=== PATIENT | female | born 1955 | race Hispanic/Latino ===

== ENCOUNTER 2018-06-27 03:59 | Observation (INO) | payer OTHER ==
[~2018-06-27] VITALS: Ht 170.2 cm; Wt 72.6 kg
[2018-06-27 04:34] LABS: BASOPHILS % (AUTO) 0.8 % (0.0-5.0); EOSINOPHILS % (AUTO) 2.9 % (0.0-8.0); LYMPHOCYTES % (AUTO) 49.1 % (21.0-51.0); MEAN CORPUSCULAR HEMOGLOBIN 31.2 pg (27.0-33.0); MEAN CORPUSCULAR HGB CONC 34.5 g/dL (32.0-36.0); MEAN CORPUSCULAR VOLUME 90.5 fL (79-99); MONOCYTES % (AUTO) 6.5 % (3.0-13.0); NEUTROPHILS % (AUTO) 40.7 % (40.0-77.0); PLATELET COUNT (AUTO) 223 K/uL (130-400); RED BLOOD CELL COUNT(AUTO) 4.31 MIL/uL (4.00-5.50); WHITE BLOOD COUNT (AUTO) 8.9 K/uL (4.8-10.8)
[2018-06-27 04:45] LABS: CREATININE 0.9 mg/dL (0.5-1.5); POTASSIUM 3.4 mmol/L (3.5-5.1)
[2018-06-27 04:49] LABS: ALBUMIN 3.5 g/dL (3.5-5.0); BILIRUBIN,TOTAL 0.6 mg/dL (0.2-1.0); TOTAL PROTEIN, SERUM 7.2 g/dL (6.0-8.3)
[2018-06-27 04:49] LABS: APPEARANCE,URINE Clear (CLEAR); BILIRUBIN,URINE Negative (NEGATIVE); COLOR,URINE Dark Yellow (YELLOW); GLUCOSE, URINE (UA) Negative (NEGATIVE); KETONES,URINE Negative (NEGATIVE); LEUKOCYTE ESTERASE ,URINE Small (NEGATIVE); NITRATE,URINE Negative (NEGATIVE); OCCULT BLOOD,URINE Negative (NEGATIVE); PROTEIN,URINE Negative (NEGATIVE); UROBILINOGEN,URINE 0.2 mg/dL (0.2-1.0)
[2018-06-27 05:32] LABS: BACTERIA,URINE Few /HPF (None Seen); RBC,URINE 0-1 /HPF (0-1)
[2018-06-27] MEDS ORDERED: SODIUM CHLORIDE 0.9% 1000ML 1,000 ML IV ONE (05:33)
[2018-06-27] MEDS ORDERED: DOXYCYCLINE 100MG+NS 250ML 250 ML IV ONE (05:33)
[2018-06-27] MEDS ORDERED: RANI150T7 PO (07:16)
[2018-06-27] MEDS ORDERED: GABA-531 PO (07:16)
[2018-06-27] MEDS ORDERED: LISI2.5T2 PO (07:16)
[2018-06-27] MEDS ORDERED: METF-444 PO (07:16)
[2018-06-27] MEDS ORDERED: INSU3INS9 SQ (07:16)
[2018-06-27] MEDS: INSULIN R PO SS1 SQ SCH ×4 (07:30→20:42)
[2018-06-27 08:00] VITALS: BP 125/78
[2018-06-27] MEDS ORDERED: MAG HYDROX/AL HYDROX/SIMETH ES 30 ML SUSP UDCUP PO PRN (09:00)
[2018-06-27] MEDS ORDERED: ENOXAPARIN SODIUM 30 MG/0.3 ML SQ SCH (09:00)
[2018-06-27] MEDS ORDERED: LACTULOSE 20 GM/30 ML UDCUP PO PRN (09:00)
[2018-06-27] MEDS ORDERED: ACETAMINOPHEN 325 MG TAB PO PRN ×2 (09:00)
[2018-06-27] MEDS ORDERED: DIPHENHYDRAMINE HCL 25 MG CAPSULE PO PRN (09:00)
[2018-06-27] MEDS: PANTOPRAZOLE SODIUM 40 MG TABLET.DR PO SCH (09:00)
[2018-06-27] MEDS ORDERED: DiphenhydrAMINE HCL 50 MG/ML VIAL IV PRN (09:00)
[2018-06-27] MEDS ORDERED: DEXTROSE 50%-WATER 50 ML DISP.SYRIN IV PRN (09:15)
[2018-06-27] MEDS ORDERED: LIDOCAINE HCL-MPF 1% 2ML VIAL IVP PRN (09:15)
[2018-06-27] MEDS ORDERED: PROCHLORPERAZINE EDISYLATE 10 MG/2 ML VIAL IV PRN (09:15)
[2018-06-27] MEDS ORDERED: POTASSIUM CHLORIDE 10% ELIXIR 20 MEQ/15 ML UDCUP PO PRN (09:15)
[2018-06-27] MEDS ORDERED: CEPHALEXIN 500 MG CAPSULE PO SCH (09:15)
[2018-06-27] MEDS ORDERED: POTASSIUM CHLORIDE 20MEQ/100ML 100 ML IV PRN (09:15)
[2018-06-27] MEDS ORDERED: GLUCAGON 1MG KIT 1 MG ML IM PRN (09:15)
[2018-06-27] MEDS: SODIUM CHLORIDE 0.9% 1000ML 1,000 ML IV SCH ×4 (09:34→23:25)
[2018-06-27] MEDS ORDERED: SIMV5TAB6 PO (09:51)
[2018-06-27] MEDS: POTASSIUM CHLORIDE 20 MEQ ERTAB PO PRN ×2 (09:55→11:54)
[2018-06-27 11:51] VITALS: BP 109/68
[2018-06-27] MEDS ORDERED: LOPERAMIDE HCL 2 MG CAP PO PRN (13:30)
[2018-06-27 16:00] VITALS: BP 140/80
[2018-06-27 19:38] VITALS: BP 130/77
[2018-06-27] MEDS: METRONIDAZOLE 500 MG TABLET PO SCH (20:39)
[2018-06-27] MEDS: NEOMY SULF/BACITRAC ZN/POLY OINT 30GM TUBE TP SCH (20:39)
[2018-06-27 23:43] VITALS: BP 116/70
[2018-06-28] MEDS: SODIUM CHLORIDE 0.9% 1000ML 1,000 ML IV SCH ×2 (03:02→05:24)
[2018-06-28 03:46] VITALS: BP 118/72
[2018-06-28] MEDS: INSULIN R PO SS1 SQ SCH (06:01)
[2018-06-28 07:30] VITALS: BP 123/77
[2018-06-28] MEDS ORDERED: LISI2.5T2 PO (07:34)
[2018-06-28] MEDS ORDERED: INSU3INS9 SQ (07:34)
[2018-06-28] MEDS ORDERED: GABA-529 PO (07:34)
[2018-06-28] MEDS ORDERED: INSULIN DEGLUDEC SQ SCH (08:00)
[2018-06-28] MEDS ORDERED: [UNRECOGNIZED DRUG - OTHER] SQ SCH (08:00)
[2018-06-28] MEDS ORDERED: LIRAGLUTIDE SQ SCH (08:00)
[2018-06-28] MEDS: PANTOPRAZOLE SODIUM 40 MG TABLET.DR PO SCH (08:48)
[2018-06-28] MEDS: METRONIDAZOLE 500 MG TABLET PO SCH (08:49)
[2018-06-28] MEDS: NEOMY SULF/BACITRAC ZN/POLY OINT 30GM TUBE TP SCH (08:49)
== END 2018-06-28 11:46 | disposition home or self-care (01) ==
LOC: EDH 03:59 → EDHIP 06:34 → 3BH 07:06
PROVIDERS: ADMIT Internal Medicine; ATTEND Internal Medicine
DX: A08.4 Viral intestinal infection, unspecified (principal); E86.0 Dehydration; R55 Syncope and collapse; S50.311A Abrasion of right elbow, initial encounter; E11.40 Type 2 diabetes mellitus with diabetic neuropathy, unspecified; E11.65 Type 2 diabetes mellitus with hyperglycemia; K58.9 Irritable bowel syndrome, unspecified; I10 Essential (primary) hypertension; M65.30 Trigger finger, unspecified finger; G30.9 Alzheimer's disease, unspecified; F02.80 Dementia in other diseases classified elsewhere, unspecified severity, without behavioral disturbance, psychotic disturbance, mood disturbance, and anxiety; F32.9 Major depressive disorder, single episode, unspecified; X58.XXXA Exposure to other specified factors, initial encounter; Y93.89 Activity, other specified; Y92.89 Other specified places as the place of occurrence of the external cause; Y99.8 Other external cause status; Z82.5 Family history of asthma and other chronic lower respiratory diseases; Z82.49 Family history of ischemic heart disease and other diseases of the circulatory system; Z83.3 Family history of diabetes mellitus; Z87.440 Personal history of urinary (tract) infections; Z90.710 Acquired absence of both cervix and uterus; Z79.4 Long term (current) use of insulin; Z96.651 Presence of right artificial knee joint
CPT/HCPCS: 36415 ×2; 70450; 71045; 80053; 81001; 82550; 82948 ×5; 84132; 84484; 85025; 87205; 93005; 93880; 96360; 96361 ×2; 96372; 99285; G0378 ×29; J1650; J1815 ×2; J3490; J7030 ×4

== ENCOUNTER → 2019-04-18 | Outpatient (CLI) | payer OTHER ==
[~2019-04-18] MED LIST: GABA-529 PO; INSU3INS9 SQ; LISI2.5T2 PO; RANI150T7 PO; SIMV5TAB58 PO
== END | disposition home or self-care (01) ==
LOC: RAH 12:28
PROVIDERS: ATTEND Internal Medicine
DX: Z12.31 Encounter for screening mammogram for malignant neoplasm of breast (principal)
CPT/HCPCS: 77067

== ENCOUNTER → 2020-04-18 | Outpatient (CLI) | payer OTHER | END | disposition home or self-care (01) | LOC: RAH 12:41 | PROVIDERS: ATTEND Internal Medicine | DX: Z12.31 Encounter for screening mammogram for malignant neoplasm of breast (principal) | CPT/HCPCS: 77067 ==

== ENCOUNTER → 2021-06-28 | Outpatient (CLI) | payer MEDICARE ==
[~2021-06-28] MED LIST changes: +LISI2.5T13 PO; -LISI2.5T2 PO
== END | disposition home or self-care (01) ==
LOC: RAH 11:53
PROVIDERS: ATTEND Internal Medicine
DX: Z12.31 Encounter for screening mammogram for malignant neoplasm of breast (principal)
CPT/HCPCS: 77067

== ENCOUNTER → 2022-07-11 | Outpatient (CLI) | payer MEDICARE | END | disposition home or self-care (01) | LOC: RAH 08:19 | PROVIDERS: ATTEND Internal Medicine | DX: Z12.31 Encounter for screening mammogram for malignant neoplasm of breast (principal) | CPT/HCPCS: 77067 ==

== ENCOUNTER → 2023-10-01 | Outpatient (CLI) | payer OTHER | END | disposition home or self-care (01) | LOC: RAH 14:54 | PROVIDERS: ATTEND Internal Medicine | DX: Z12.31 Encounter for screening mammogram for malignant neoplasm of breast (principal) | CPT/HCPCS: 77067 ==

== ENCOUNTER 2024-03-24 16:35 | Emergency (ER) | payer OTHER ==
[~2024-03-24] VITALS: Ht 170.2 cm; Wt 72.6 kg
[2024-03-24] MEDS ORDERED: ACET-2079 PO (17:27)
[2024-03-24] MEDS ORDERED: CEPH500B PO (17:27)
[2024-03-24] MEDS ORDERED: MUPI22O TP (17:27)
[2024-03-24] MEDS: NEOMY SULF/BACITRA/POLYMYXIN B 1 EACH PACKET TP ONE (17:38)
[2024-03-24] MEDS: CEPHALEXIN 500 MG CAPSULE PO ONE (17:39)
[2024-03-24] MEDS: TETANUS/DIPHTHERIA TOXOID [ADULT] 0.5 ML VIAL IM ONE (17:40)
[2024-03-24] MEDS: ACETAMINOPHEN WITH CODEINE 1 TAB TAB PO ONE (17:42)
[2024-03-24 18:25] VITALS: BP 141/80; PULSE 92; RESP 20; O2SAT 99
== END 2024-03-24 18:25 | disposition home or self-care (01) ==
LOC: EDH 16:35
DX: T25.122A Burn of first degree of left foot, initial encounter (principal); T25.121A Burn of first degree of right foot, initial encounter; E11.9 Type 2 diabetes mellitus without complications; Z79.899 Other long term (current) drug therapy; Z98.890 Other specified postprocedural states; X08.8XXA Exposure to other specified smoke, fire and flames, initial encounter; Y93.89 Activity, other specified; Y92.832 Beach as the place of occurrence of the external cause; Y99.8 Other external cause status
CPT/HCPCS: 16020; 90471; 90714

== ENCOUNTER 2024-09-02 22:29 | Emergency (ER) | payer OTHER ==
[~2024-09-02] VITALS: Ht 170.2 cm; Wt 71.7 kg
[~2024-09-02 22:29] MED LIST changes: +ACET-2079 PO; +CEPH500B PO; +MUPI22O TP
--- NOTE | 2024-09-02 22:39 | NUR ---
RT WRIST SPLINT PLACED
[2024-09-02] MEDS: ondanSETRON ODT 4MG TAB ONE (22:44)
[2024-09-02] MEDS: ketOROlac 15MG/ML VIAL (15MG/ML) IM ONE (22:48)
[2024-09-02] MEDS: TRIAMCINOLONE ACETONIDE 40 MG/ML 1ML VIAL IM ONE (22:49)
--- NOTE | 2024-09-02 22:55 | ERN ---
General Chief Complaint: Wrist Pain/Injury Stated Complaint: RT WRIST PAIN, ARTHRITIS Time Seen by MD: 22:32 Source: patient History of Present Illness Initial Comments PATIENT IS A 68-YEAR-OLD FEMALE COMING IN TO BE EVALUATED FOR RIGHT WRIST PAIN. PATIENT STATES HE HAS A CHRONIC HISTORY OF RHEUMATOID ARTHRITIS AND FREQUENTLY GETS FLARE-UPS. PER PATIENT SHE WAS SEEN AT ANOTHER HOSPITAL GIVEN ANTI- INFLAMMATORIES AND STEROIDS. SHE STATES THAT THE PAIN HAS NOT IMPROVED. Allergies: Coded Allergies: No Known Drug Allergies (Verified Allergy, Unknown, 02/13/15) Home Meds Active Scripts Cephalexin Monohydrate (Keflex) 500 Mg Cap, 500 MG PO QID for 7 Days, #28 CAP Prov:CHRIS HODGSON SUPERVISOR QUILTING 03/24/24 Mupirocin (Bactroban 2% Oint) 2 % Oint, 1 APPL TP BID for 7 Days, #60 GM Apply small amount to affected area on both feet twice a day for seven days with dressing. Prov:CHRIS HODGSON NP 03/24/24 Acetaminophen with Codeine (Acetaminophen-Cod #3 Tablet) 300 Mg-30 Mg Tablet, 1 TAB PO Q6H PRN for Moderate pain, #15 TAB Prov:CHRIS HODGSON NP 03/24/24 Insulin Degludec/Liraglutide (Xultophy 100 Unit-3.6 mg/ml) 3 Ml Insuln.pen, 15 UNITS SQ DAILY, #90 SYRINGE 0 Refills Prov:IKER ZAVALA MD 06/28/18 Lisinopril (Lisinopril) 2.5 Mg Tablet, 0.5 MG PO HS, #15 TAB 0 Refills Prov:IKER ZAVALA MD 06/28/18 Gabapentin (Gabapentin) 100 Mg Capsule, 100 MG PO HS, #90 CAP 0 Refills Prov:IKER ZAVALA MD 06/28/18 Reported Medications Simvastatin (Simvastatin) 5 Mg Tablet, 10 MG PO HS, TAB 06/27/18 Ranitidine HCl (Ranitidine HCl) 150 Mg Tablet, 150 MG PO DAILY PRN for HEARTBURN, TAB 06/27/18 Insulin Degludec/Liraglutide (Xultophy 100 Unit-3.6 mg/ml) 3 Ml Insuln.pen, 30 U NITS SQ DAILYBKFST, SYRINGE 06/27/18 Past Medical History Past Medical History: Arthritis, Diabetes-Type II, GERD Past Surgical History: Hysterectomy, Other Surgical History Other: L BREAST LUMPECTOMY, PROPLAPSE BLADDER/VAGINA, KNEE SX, BUNION REMOVAL Female( History) History: Not Applicable ROS Dictation CONSTITUTIONAL: NO CHILLS, NO FEVER, NO WEAKNESS, NO DIAPHORESIS, NO MALAISE. HEAD/FACE: NO SIGNS OF TRAUMA. EENT: NO EYE PAIN, NO BLURRED VISION, NO TEARING, NO DOUBLE VISION, NO EAR PAIN, NO EAR DISCHARGE, NO NOSE PAIN, NO NASAL CONGESTION, NO THROAT PAIN, NO THROAT SWELLING, NO MOUTH PAIN. RESPIRATORY: NO COUGH, NO ORTHOPNEA, NO SOB, NO STRIDOR, NO WHEEZING. CARDIOVASCULAR: NO CHEST PAIN, NO EDEMA, NO PALPITATIONS, NO SYNCOPE. GASTROINTESTINAL/ABDOMINAL: NO ABDOMINAL PAIN, NO CONSTIPATION, NO DIARRHEA, NO NAUSEA, NO VOMITING. GENITOURINARY: NO ABNORMAL DISCHARGE, NO DYSURIA, NO FREQUENT URINATION, NO HEMATURIA. NO COMPLAINTS OF PAIN IN THE GENITALS. MUSCULOSKELETAL: NO BACK PAIN, NO GOUT,JOINT PAIN, JOINT SWELLING, NO MUSCLE PAIN, NO MUSCLE STIFFNESS, NO NECK PAIN. INTEGUMENTARY: NO CHANGE IN COLOR, NO CHANGE IN HAIR/NAILS, NO DRYNESS, NO LESION, NO LUMPS, NO RASH. NEUROLOGICAL/PSYCH: NO ANXIETY, NOT DEPRESSED, NO EMOTIONAL PROBLEM, NO HEADACHE, NO NUMBNESS, NO PRE-EXISTING DEFICIT, NO HISTORY OF SEIZURES, NO TREMORS, NO WEAKNESS. HEMATOLOGIC/LYMPHATIC: NOT ANEMIC, NO HISTORY OF BLOOD CLOTS, NO APPARENT BLEEDING, NO BRUISING, GLANDS NOT SWOLLEN. ALL SYSTEMS NEGATIVE, EXCEPT NOTED. Physical Exam Physical Exam Dictation VITAL SIGNS: REVIEWED. GENERAL APPEARANCE: ALERT, ORIENTED X3, NO ACUTE DISTRESS, OBESE. HEAD AND FACE: NON-TRAUMATIC. EYES: PERRL, PINK CONJUNCTIVAS, EYELID NO TRAUMA, ANTERIOR CHAMBER CLEAR. EARS: PINNAS INTACT AND NO SIGNS OF TRAUMA OR ERYTHEMA. EAR CANALS CLEAR AND NO DISCHARGE. TMS NO ERYTHEMA. NOSE: NO DISCHARGE, NO BLEEDING. OROPHARYNX: MOUTH NORMAL, TEETH NO CARIES, TONGUE PINK. PHARYNX CLEAR, NO ERYTHEMA. TONSILS NO EXUDATES, NO ABSCESSES NOTED. MUCOUS MEMBRANE MOIST. NECK: SUPPLE, NON-TENDER, NO THYROMEGALY, NO MASSES, NO JVD, NO BRUITS. BREAST: DEFERRED. CHEST: NO TENDERNESS, NO CREPITUS, NO PARADOXICAL MOVEMENT, NO RETRACTIONS. LUNGS: CLEAR, WELL-VENTILATED, SYMMETRIC, NO RALES, NO WHEEZING, NO RHONCHI, NO STRIDOR, GOOD BREATH SOUNDS BILATERALLY. HEART: REGULAR RATE, REGULAR RHYTHM, NO MURMUR, NO GALLOPS. VASCULAR: NO PERIPHERAL EDEMA. ABDOMEN: SOFT, POSITIVE BOWEL SOUNDS, NONDISTENDED, NO GUARDING, NONTENDER, NO REBOUND, NO MASSES NO HEPATOMEGALY, NO SPLENOMEGALY, NO EATON'S SIGN, NO HERNIAS. RECTAL: DEFERRED. GENITAL: DEFERRED. NEUROLOGICAL: NORMAL SPEECH, GROSS MOTOR FUNCTION INTACT, GROSS SENSORY FUNCTION INTACT. MUSCULOSKELETAL: NECK NONTENDER, FULL RANGE OF MOTION, BACK NONTENDER, FULL RANGE OF MOTION. EXTREMITIES: NONTENDER, FULL RANGE OF MOTION. RIGHT WRIST PAIN, PAIN REPRODUCIBLE ON PALPATION PATIENT NO DEFORMITY NOTED SKIN: COLOR PINK, DRY, NO TURGOR, NO RASH, NO LACERATIONS, NO ABRASIONS, NO CONTUSIONS. LYMPHATICS: DEFERRED. Results Laboratory and Microbiology Labs Reviewed?: Yes MDM MDM: DIFFERENTIAL DIAGNOSIS: RHEUMATOID ARTHRITIS, ARTHRITIS FLARE-UP PATIENT IS A 68-YEAR-OLD FEMALE COMING IN TO BE EVALUATED FOR RIGHT WRIST PAIN. PATIENT STATES THAT SHE HAS A EXTENSIVE HISTORY OF RHEUMATOID ARTHRITIS AND FREQUENTLY GETS FLARE-UPS. AND TODAY'S ER VISIT PATIENT RECEIVED ANTI- INFLAMMATORIES IN THE FORM OF TORADOL AND KENALOG IM WRIST SPLINT WAS PLACED PATIENT STATES THAT HER SYMPTOMS IMPROVED SIGNIFICANTLY. PATIENT WILL BE DISCHARGED IN STABLE CONDITION WITH A DIAGNOSIS OF ARTHRITIC FLARE-UP ED Course Orders Procedure Category Date Status Time Ketorolac PHA 09/02/24 In Process Tromethamine 15mg/Ml 23:00 Triamcinolone Acet PHA 09/02/24 In Process 40mg/Ml 1ml (Kenalog 23:00 Ondansetron Odt 4mg PHA 09/02/24 Complete Tab (Zofran 4mg Odt) 22:42 Current Medications Medications (Trade) Dose Ordered Sig/Adonay Route PRN Reason Start Time Stop Time Status Last Admin Dose Admin Ketorolac Tromethamine (toRADol) 15 mg ONCE ONCE IM 09/02/24 23:00 09/02/24 23:01 09/02/24 22:48 Ondansetron HCl (zoFRAN 4MG ODT) 4 mg STK-MED ONCE .ROUTE 09/02/24 22:42 09/02/24 22:43 DC 09/02/24 22:44 Triamcinolone Acetonide (Kenalog 40) 40 mg ONCE ONCE IM 09/02/24 23:00 09/02/24 23:01 09/02/24 22:49 Vital Signs Date Time Temp Pulse Resp B/P (MAP) Pulse Ox O2 Delivery O2 Flow Rate FiO2 09/02/24 22:31 98.8 80 16 136/90 98 Room Air DX & DISP Disposition: Discharge Departure Impression: Primary Impression: Rheumatoid arthritis flare Condition: Stable Referrals: IKER ZAVALA MD (PCP) Time of Disposition: 23:02 DANIELLE SHAHID MD Sep 02, 2024 22:55
[2024-09-02 23:05] VITALS: BP 128/75; PULSE 81; RESP 18; TEMP 98.5; O2SAT 98
== END 2024-09-02 23:26 | disposition home or self-care (01) ==
LOC: EDH 22:29
DX: M06.9 Rheumatoid arthritis, unspecified (principal); E11.9 Type 2 diabetes mellitus without complications; K21.9 Gastro-esophageal reflux disease without esophagitis; Z79.4 Long term (current) use of insulin; Z79.85 Long-term (current) use of injectable non-insulin antidiabetic drugs; Z90.710 Acquired absence of both cervix and uterus
CPT/HCPCS: 99283; 29125; 96372 ×2; J3301; J1885

== ENCOUNTER → 2024-10-19 | Outpatient (CLI) | payer OTHER ==
--- NOTE | 2024-10-19 09:46 | HMCIMG ---
MAMMO SCREENING BILATERAL HISTORY: Screening mammogram. COMPARISON: None TECHNIQUE: Bilateral screening mammogram with CAD was performed with craniocaudal and mediolateral oblique projections. FINDINGS: There are scattered areas of fibroglandular density. Vascular calcifications are seen. There is no evidence of a dominant mass, or suspicious microcalcification. There is no evidence of nipple retraction or skin thickening. IMPRESSION: 1. Stable mammogram. Patient was entered into a reminder system with a target due date for their next mammogram. BI-RADS: CATEGORY 2: BENIGN FINDINGS Recommend monthly self breast exam as well as annual clinical examination. A negative x-ray should not delay biopsy if a dominant or clinically suspicious mass is present, since 8-10% of cancers are not identified by mammography. Dense breasts particularly, may obscure an underlying neoplasm. Some of these may be detected clinically and therefore, clinical examination is an essential part of breast evaluation.
== END | disposition home or self-care (01) ==
LOC: RAH 07:40
PROVIDERS: ATTEND Internal Medicine
DX: Z12.31 Encounter for screening mammogram for malignant neoplasm of breast (principal); R92.323 Mammographic fibroglandular density, bilateral breasts
CPT/HCPCS: 77067

== ENCOUNTER → 2025-01-31 | Outpatient (CLI) | payer OTHER ==
--- NOTE | 2025-01-31 15:11 | HMCIMG ---
BONE DENSITOMETRY: HISTORY: Age-related osteoporosis without current pathological fracture Comparison: none FINDINGS: BMD measured at AP spine L1-L4 is 0.787 g/cm2 with a T-score of -2.4 Bone density is between 10 and 25% below young normal. This patient is considered osteopenic. Fracture risk is moderate. BMD measured at Left Femoral Neck is 0.519 g/cm2 with a T-score of -3.0 This patient is considered osteoporotic according to WHO criteria. Fracture risk is high. BMD measured at Left Femoral Total is 0.624 g/cm2 with a T-score of -2.5 This patient is considered osteoporotic according to WHO criteria. Fracture risk is high. IMPRESSION: Osteoporosis. High risk for atraumatic fractures. Treatment and follow-up recommended.
== END | disposition home or self-care (01) ==
LOC: RAH 14:23
PROVIDERS: ATTEND Internal Medicine
DX: M81.0 Age-related osteoporosis without current pathological fracture (principal); M85.88 Other specified disorders of bone density and structure, other site
CPT/HCPCS: 77080

== ENCOUNTER 2025-04-18 22:42 | Emergency (ER) | payer OTHER ==
[~2025-04-18] VITALS: Ht 170.2 cm; Wt 66.7 kg
--- NOTE | 2025-04-18 23:18 | ERN ---
General Chief Complaint: Hand Problem/Injury Stated Complaint: C/O PAIN TO LEFT HAND Time Seen by MD: 22:48 Source: patient History of Present Illness Initial Comments 69-year-old female with diabetes and GERD and arthritis with a history of carpal tunnel syndrome and ganglion cyst removal on her right hand comes in with pain and numbness on her left hand. She did not hit it or over exert herself or do anything to create the pain and numbness that she feels now. She said see woke up from asleep with her left forearm and hand feeling painful and numb. Allergies: Coded Allergies: No Known Drug Allergies (Verified Allergy, Unknown, 02/13/15) Home Meds Active Scripts Cephalexin Monohydrate (Keflex) 500 Mg Cap, 500 MG PO QID for 7 Days, #28 CAP Prov:CHRIS HODGSON NP 03/24/24 Mupirocin (Bactroban 2% Oint) 2 % Oint, 1 APPL TP BID for 7 Days, #60 GM Apply small amount to affected area on both feet twice a day for seven days with dressing. Prov:CHRIS HODGSON NP 03/24/24 Acetaminophen with Codeine (Acetaminophen-Cod #3 Tablet) 300 Mg-30 Mg Tablet, 1 TAB PO Q6H PRN for Moderate pain, #15 TAB Prov:CHRIS HODGSON NP 03/24/24 Insulin Degludec/Liraglutide (Xultophy 100 Unit-3.6 mg/ml) 3 Ml Insuln.pen, 15 UNITS SQ DAILY, #90 SYRINGE 0 Refills Prov:IKER ZAVALA MD 06/28/18 Lisinopril (Lisinopril) 2.5 Mg Tablet, 0.5 MG PO HS, #15 TAB 0 Refills Prov:IKER ZAVALA MD 06/28/18 Gabapentin (Gabapentin) 100 Mg Capsule, 100 MG PO HS, #90 CAP 0 Refills Prov:IKER ZAVALA MD 06/28/18 Reported Medications Simvastatin (Simvastatin) 5 Mg Tablet, 10 MG PO HS, TAB 06/27/18 Ranitidine HCl (Ranitidine HCl) 150 Mg Tablet, 150 MG PO DAILY PRN for HEARTBURN, TAB 06/27/18 Insulin Degludec/Liraglutide (Xultophy 100 Unit-3.6 mg/ml) 3 Ml Insuln.pen, 30 UNITS SQ DAILYBKFST, SYRINGE 06/27/18 Past Medical History Past Medical History: Arthritis, Diabetes-Type II, GERD, Other Medical History Other: HIATAL HERNIA Past Surgical History: Hysterectomy Surgical History Other: HX OF PROLAPSED BLADDER Female( History) History: Not Applicable ROS Dictation Review of systems is negative beyond chief complaint and HPI. Physical Exam General Appearance: (+) no apparent distress Extremities Comment Patient's left forearm and left wrist and hand have normal skin tone and color. Normal skin sensation all dermatomes. Patient has very weak hand activity. Stating that is the pain that limits her movements. But she can show motor activity for both the median ulnar and radial nerves. There are no areas of new swelling or ecchymosis. Tinel's sign is positive for the median nerve and negative for the ulnar nerve MDM We will start with plain films and a CK and fluids. Differential diagnosis could be: Sleeping on arm, carpal tunnel syndrome, arthritis, dehydration, compartment syndrome Plain films of the patient's left hand do show what appears to be an increased density in the marrow of the left 4th metacarpal bone. And that really is where her pain in her left hand is the worst. Manipulating the left 4th metacarpal and the 3rd and 5th metacarpal bones cause strong pain reaction from the patient. There are no fractures or arthritic changes that I can see in the x- rays that can explain the patient's symptoms. ED Course Orders Procedure Category Date Status Time Hand 3+Vws Lt RAD 04/18/25 Taken 22:56 Elbow Comp 3+Vws Lt RAD 04/18/25 Taken 22:56 Vital Signs Date Time Temp Pulse Resp B/P (MAP) Pulse Ox O2 Delivery O2 Flow Rate FiO2 04/18/25 22:45 98.1 77 20 115/73 98 Room Air DX & DISP Disposition: Discharge Departure Impression: Primary Impression: Left hand pain Additional Impression: Non-articular pain of left hand Condition: Stable Additional Instructions: I recommend you follow-up with your hand surgeon. As I can not see any fractures or dislocations or obvious arthritic changes could be explaining the pain in her left hand. It maybe arthritis, or from sleeping on the hand in funny position. At least we can rule out a fracture based on the plain films. The best medicine for the pain would be ibuprofen or Motrin. Referrals: IKER ZAVALA MD (PCP) JOSE ALBERTO OTERO MD Apr 18, 2025 23:18
--- NOTE | 2025-04-19 00:14 | HMCIMG ---
EXAM: CR Left Hand, 3 views. CLINICAL HISTORY: Pain. COMPARISON: None provided. FINDINGS: No acute fracture or aggressive appearing osseous lesion. Mild osteopenia. Mild osteoarthritis. Diffuse soft tissue swelling is evident. Nonspecific degenerative calcification around the scapholunate and lunotriquetral ligaments. IMPRESSION: No acute bony abnormality is evident. Mild osteopenia. Mild osteoarthritis. Diffuse soft tissue swelling. /[place]
[2025-04-19 00:22] VITALS: BP 116/67; PULSE 71; RESP 18; TEMP 97.5; O2SAT 98
--- NOTE | 2025-04-19 00:24 | HMCIMG ---
EXAM: CR Left Elbow, 3 views. CLINICAL HISTORY: Pain. COMPARISON: None provided. FINDINGS: No acute fracture or aggressive appearing osseous lesion. Mild osteopenia. Mild osteoarthritis. No radiographic evidence of joint effusion. Mild enthesopathy around the common flexor and common extensor origins. IMPRESSION: No acute bony abnormality is evident. Mild osteopenia. Mild osteoarthritis. Mild enthesopathy around the common flexor and common extensor origins. /[place]
== END 2025-04-19 00:23 | disposition home or self-care (01) ==
LOC: EDH 22:42
DX: M79.642 Pain in left hand (principal); E11.9 Type 2 diabetes mellitus without complications; K21.9 Gastro-esophageal reflux disease without esophagitis; Z79.4 Long term (current) use of insulin; Z79.85 Long-term (current) use of injectable non-insulin antidiabetic drugs; Z90.710 Acquired absence of both cervix and uterus
CPT/HCPCS: 73080; 73130; 99283

== ENCOUNTER → 2025-08-25 | Outpatient (CLI) | payer OTHER ==
--- NOTE | 2025-08-25 20:28 | EKG ---
[facility] Test Date: 2025-08-25 Test Time: 15:18:42 Pat Name: HARMONY KERNS Department: [facility] Room: Gender: F Cardiology Rn: [id number] : 1955 Requested By: IKER ZAVALA Order Number: [id number] Reading MD: Eder Luz Measurements Intervals [place] Rate: 61 P: 33 OR: 150 QRS: 1 QRSD: 90 T: 33 QT: 412 QTc: 414 Interpretive Statements Normal sinus rhythm Compared to ECG 06/27/2018 04:20:45 Right bundle-branch block no longer present Electronically Signed On 08-26-2025 08:26:43 NUT SORTER OPERATOR by Eder Luz Please click the below link to view image of tracing.
== END | disposition home or self-care (01) ==
LOC: RAH 14:20
PROVIDERS: ATTEND Internal Medicine
DX: Z01.810 Encounter for preprocedural cardiovascular examination (principal); E78.2 Mixed hyperlipidemia; N18.31 Chronic kidney disease, stage 3a
CPT/HCPCS: 93005